=== PATIENT | male | born 1975 ===

== ENCOUNTER 2023-06-05 06:00 | Day surgery (SDC) | payer BC ==
[2023-06-04 09:56] VITALS: BMI 21.9
[2023-06-05] MEDS ORDERED: PROPOFOL 40 ML ONE (07:19)
== END 2023-06-05 08:30 | disposition home or self-care (01) ==
LOC: CSHSDC 06:00
PROVIDERS: ATTEND Internal Medicine Gastroenterology
PROC: 0DJD8ZZ Inspection of Lower Intestinal Tract, Via Natural or Artificial Opening Endoscopic (ICD-10-PCS; principal; 2023-06-05)
DX: Z12.11 Encounter for screening for malignant neoplasm of colon (principal); E11.9 Type 2 diabetes mellitus without complications; E78.5 Hyperlipidemia, unspecified; F17.200 Nicotine dependence, unspecified, uncomplicated
CPT/HCPCS: J2704